=== PATIENT | male | born 1955 | race Caucasian/White ===

== ENCOUNTER 2018-01-01 00:57 | Day surgery (SDC) | payer OTHER ==
[2018-01-01] VITALS (8 sets, daily range): BP systolic 120–150; BP diastolic 60–89
[~2018-01-01] VITALS: Ht 180.3 cm; Wt 83.0 kg
[~2018-01-01 00:57] MED LIST: ABILIF5PT PO; ACET600C3 PO; ASPI-1471 PO; LAMO300T2 PO; LAMOT150PT PO; LEVO-3 PO; LEVO300T31 PO; MULT1TAB64 PO; OXCA150T47 PO; OXCA300T59 PO
[2018-01-01] MEDS ORDERED: FAMOTIDINE 20 MG TAB PO ONE (06:00)
[2018-01-01] MEDS ORDERED: ceFAZolin(*) 2GM/D5W 50ML 50 ML IVPB ONE (06:00)
[2018-01-01] MEDS ORDERED: MIDAZOLAM 2 MG/2 ML VIAL IVP PRN (06:00)
[2018-01-01] MEDS ORDERED: LIDOCAINE/SOD BICARB 8.4% SYR ID ONE (06:00)
[2018-01-01] MEDS ORDERED: BACITRACIN OINT 0.9 GM PKT TP ONE (07:20)
[2018-01-01] MEDS ORDERED: ROPIVACAINE 0.5% 20 ML VIAL ONE (07:20)
[2018-01-01] MEDS: NORMOSOL R SOLN(*) 1000 ML BAG 1,000 ML IV PRN ×2 (07:20→09:16)
[2018-01-01] MEDS ORDERED: fentaNYL CITR 100 MCG/2 ML AMP ONE ×2 (07:30→09:22)
[2018-01-01] MEDS ORDERED: LIDOCAINE MPF 1% 5 ML VIAL ONE (07:31)
[2018-01-01] MEDS ORDERED: PROPOFOL EMUL(*) 10MG/ML 20 ML 20 ML ONE (07:31)
[2018-01-01] MEDS ORDERED: KETAMINE HCL-NS 50 MG/5 ML SYR ONE (07:31)
[2018-01-01] MEDS ORDERED: ONDANSETRON 4 MG/2 ML VIAL ONE (07:31)
[2018-01-01] MEDS ORDERED: DEXAMETHASONE SOD PHOS 10MG/ML ONE (07:31)
[2018-01-01] MEDS ORDERED: ROCURONIUM BROM 10 MG/ML 10 ML ONE (08:35)
[2018-01-01] MEDS ORDERED: SUGAMMADEX SOD 500 MG/5 ML SDV ONE (09:02)
[2018-01-01] MEDS ORDERED: OXYC-854 PO (09:22)
[2018-01-01] MEDS ORDERED: DOCU-416 PO (09:22)
--- NOTE | 2018-01-01 09:25 | Short(Outpt) Discharge Summary ---
Discharge Summary Reason for Hosp/Final Diag: (1) Umbilical hernia Status: Chronic Hospital Course & Plan: UH repair WITH mesh completed without problems. Departure Discharge to: Home, Self Care Discharge Instructions Home Meds Active Scripts Docusate Sodium (COLACE) 100 Mg Capsule, 1 CAP PO BID, #30 CAP 0 Refills TAKE WITH A FULL GLASS OF WATER Prov:YULIET FARRIS MD 01/01/18 Oxycodone Hcl/Acet 5/325 Mg (ENDOCET 5-325 TABLET) 1 Each Tablet, 1 TAB PO Q4H PRN for PAIN, #20 TAB 0 Refills Prov:YULIET FARRIS MD 01/01/18 Reported Medications Lamotrigine (LAMOTRIGINE) 300 Mg Tab.er.24, 300 MG PO DAILY 12/09/17 Levothyroxine Sodium (LEVOTHYROXINE SODIUM) 300 Mcg Tablet, 350 MCG PO QDAY 12/09/17 Oxcarbazepine (OXCARBAZEPINE) 300 Mg Tablet, 300 MG PO DAILY 12/09/17 Multivitamin (MULTI VITAMIN DAILY) 1 Each Tablet, 1 EACH PO QDAY, TAB 12/09/17 Acetylcysteine (NAC) 600 Mg Capsule, 600 MG PO QDAY, CAPSULE 12/09/17 Aspirin (ASPIR 81) 81 Mg Tablet.dr 81 MG PO QDAY, TAB 12/09/17 Aripiprazole (ABILIFY) 5 Mg Tablet, 0.5 TAB PO QODAY, #10 TAB 01/13/15 Follow up Referrals: General Surgery - 01/16/18 @ Surgery, General with YULIET FARRIS MD You have a follow up appointment scheduled with Dr. Farris on 01/16/18, at 10:15am. Diet: Regular Activity: No Heavy Lifting Special Instructions: You may remove the white surgical dressing on 01/03/18, then you can shower. After showering, leave the incision open to air but leave the steristrips in place until they fall off on their own. Do not immerse the incision for 2 weeks. Avoid any activity that involves straining or lifting more then 10 pounds for 4 weeks after surgery. Problem Qualifiers (1) Umbilical hernia: Obstruction and gangrene presence: without obstruction or gangrene Qualified Codes: K42.9 - Umbilical hernia without obstruction or gangrene YULIET FARRIS MD Jan 01, 2018 09:25
--- NOTE | 2018-01-01 09:31 | Post Operative Progress Note ---
Post Operative Progress Note Date: Jan 01, 2018 Time: 09:25 Surgeon: Brigid Dictation number: [id number] Anesthesia: LMA by Dr. Eid Pre-Op Diagnosis: Umbilical Hernia Post-Op Diagnosis: ROD Findings: 1.5cm defect Procedure(s): UH repair with mesh Specimen Removed:(May be N/A): Hernia sac and contents Complications: None Fluids: See anesthesia record Estimated Blood Loss: Minimal Date OP Note Dictated: Jan 01, 2018 Time OP Note Dictated: 09:26 YULIET FARRIS MD Jan 01, 2018 09:31
--- NOTE | 2018-01-01 18:56 | OPERATIVE REPORT 1 ---
EVENT DATE: January 01, 2018 SURGEON: Beck Rainey MD ANESTHESIOLOGIST: Alpesh Eid MD ANESTHESIA: LMA. PREOPERATIVE DIAGNOSIS Umbilical hernia. POSTOPERATIVE DIAGNOSIS Umbilical hernia. PROCEDURE PERFORMED Umbilical hernia repair with mesh. COMPLICATIONS None. CONDITION Stable. BLOOD LOSS Minimal. FINDINGS Patient had about a 1.5 cm fascial defect. I placed a 4.5 cm piece of C-QUR umbilical mesh to patch the defect. INDICATIONS Patient is a 62-year-old gentleman who presented to my office with a bulge at his umbilicus that was getting bigger and causing him some discomfort. It was consistent with an umbilical hernia, and he was requesting to have it repaired. DESCRIPTION OF PROCEDURE The patient was brought to the operating room and placed supine on the operating table. LMA anesthesia was administered, and his abdomen was prepped and draped in a sterile fashion. Timeout was completed, and I injected the supraumbilical skin with 0.5% ropivacaine plain. I made a curvilinear frowning face-type supraumbilical incision and dissected through the dermis and in the subcutaneous fat. I identified the hernia sac immediately and dissected around this and raised the umbilicus up off of the hernia sac. I cleaned off the hernia sac all the way down to the fascial defect and then amputated the hernia sac. There were no intra-abdominal contents in the hernia sac. I maintained control of the peritoneum where I divided the hernia sac, and then when I passed the specimen off the field, I closed the peritoneal defect with a running 3-0 Vicryl suture. I then created a preperitoneal space, then measured the fascial defect at about 1.5 cm, then obtained a 4.3 cm round piece of C-QUR umbilical mesh, inserted it into the preperitoneal space, and cut off the tails. It laid nice and flat. I irrigated and dried the wound and then oversewed the fascia with interrupted 0 Ethibond sutures. I incorporated the mesh into this closure to make sure the mesh did not migrate out of the way of the fascial defect. I then tacked the umbilicus down to the fascia with a single 3-0 Vicryl suture. The skin was closed with 4-0 Monocryl running subcuticular sutures. I then irrigated and dried the skin, placed Steri-Strips over the incision, then packed the umbilicus with antibiotic-laden 2 x 2 gauze, and then covered this whole incision and umbilicus with Primapore surgical dressing. The patient was awakened and LMA removed. He was transported to the recovery room in stable condition having tolerated the procedure without any problems. KRUPA
== END 2018-01-01 10:00 | disposition home or self-care (01) ==
LOC: OR 00:57
PROVIDERS: ATTEND Surgery
DX: K42.9 Umbilical hernia without obstruction or gangrene (principal)
CPT/HCPCS: 49585; 88302; 94667; C1781; C9399; J1100; J2001; J2405; J2704; J2795; J3010; J3490; J0690

== ENCOUNTER → 2018-04-21 | Outpatient (CLI) | payer OTHER ==
[~2018-04-21] MED LIST changes: +DOCU-416 PO; +OXYC-854 PO
== END ==
LOC: LAB 10:34
PROVIDERS: ATTEND Family Medicine
DX: R79.0 Abnormal level of blood mineral (principal)
CPT/HCPCS: 36415; 85014

== ENCOUNTER 2018-05-21 01:29 | Day surgery (SDC) | payer OTHER ==
[~2018-05-21] VITALS: Ht 180.3 cm; Wt 79.4 kg
[2018-05-21] VITALS (10 sets, daily range): BP systolic 133–165; BP diastolic 68–87
[~2018-05-21 01:29] MED LIST changes: +LISI5TAB25 PO; +MV-M1TAB37 PO
[2018-05-21] MEDS ORDERED: FAMOTIDINE 20 MG TAB PO ONE (06:45)
[2018-05-21] MEDS ORDERED: PREGABALIN 150 MG CAPSULE PO ONE (06:45)
[2018-05-21] MEDS ORDERED: ACETAMINOPHEN 500 MG TAB PO ONE (06:45)
[2018-05-21] MEDS ORDERED: MIDAZOLAM 2 MG/2 ML VIAL IVP PRN (06:45)
[2018-05-21] MEDS ORDERED: LIDOCAINE/SOD BICARB 8.4% SYR ID ONE (06:45)
[2018-05-21] MEDS ORDERED: ceFAZolin(*) 2GM/D5W 50ML 50 ML IVPB ONE (06:45)
[2018-05-21] MEDS ORDERED: NORMOSOL R SOLN(*) 1000 ML BAG 1,000 ML IV PRN (06:45)
[2018-05-21] MEDS ORDERED: ROPIVACAINE 0.5% 20 ML VIAL ONE (08:08)
[2018-05-21] MEDS ORDERED: fentaNYL CITR 100 MCG/2 ML AMP ONE ×3 (08:08→12:08)
[2018-05-21] MEDS ORDERED: KETAMINE HCL-NS 50 MG/5 ML SYR ONE (08:08)
[2018-05-21] MEDS ORDERED: ONDANSETRON 4 MG/2 ML VIAL ONE (08:09)
[2018-05-21] MEDS ORDERED: LIDOCAINE MPF 1% 5 ML VIAL ONE (08:09)
[2018-05-21] MEDS ORDERED: ROCURONIUM BROM 10 MG/ML 10 ML ONE (08:09)
[2018-05-21] MEDS ORDERED: PROPOFOL EMUL(*) 10MG/ML 20 ML 20 ML ONE (08:09)
[2018-05-21] MEDS ORDERED: DEXAMETHASONE SOD PHOS 10MG/ML ONE (08:09)
[2018-05-21] MEDS ORDERED: LABETALOL HCL 25 MG/5 ML SYRINGE ONE (09:38)
[2018-05-21] MEDS ORDERED: OXYC-854 PO (11:21)
[2018-05-21] MEDS ORDERED: DOCU-416 PO (11:21)
--- NOTE | 2018-05-21 11:25 | Short(Outpt) Discharge Summary ---
Discharge Summary Reason for Hosp/Final Diag: (1) Bilateral inguinal hernia (BIH) Status: Chronic Hospital Course & Plan: Robotic BIH repair completed without problems. Departure Discharge to: Home, Self Care Discharge Instructions Home Meds Active Scripts Docusate Sodium (COLACE) 100 Mg Capsule, 1 CAP PO BID, #30 CAP 0 Refills TAKE WITH A FULL GLASS OF WATER Prov:YULIET FARRIS MD 05/21/18 Oxycodone Hcl/Acet 5/325 Mg (ENDOCET 5-325 TABLET) 1 Each Tablet, 1 TAB PO Q4H PRN for PAIN, #20 TAB 0 Refills Prov:YULIET FARRIS MD 05/21/18 Reported Medications Lisinopril (LISINOPRIL) 5 Mg Tablet, 5 MG PO QDAY, TAB 05/12/18 Mv-Mn/Fa/Lycopene/Lut/Hb#178 (DARI MULTI FOR MEN TABLET) 1 Each Tablet, 1 EACH PO DAILY 05/12/18 Lamotrigine (LAMOTRIGINE) 300 Mg Tab.er.24, 300 MG PO DAILY 12/09/17 Levothyroxine Sodium (LEVOTHYROXINE SODIUM) 300 Mcg Tablet, 350 MCG PO QDAY 12/09/17 Oxcarbazepine (OXCARBAZEPINE) 300 Mg Tablet, 300 MG PO DAILY 12/09/17 Acetylcysteine (NAC) 600 Mg Capsule, 2400 MG PO QDAY, CAPSULE 12/09/17 Aspirin (ASPIR 81) 81 Mg Tablet.dr, 81 MG PO QDAY, TAB 12/09/17 Aripiprazole (ABILIFY) 5 Mg Tablet, 0.5 TAB PO QODAY, #10 TAB 01/13/15 Follow up Referrals: General Surgery - 06/03/18 @ Surgery, General with YULIET FARRIS MD You have a follow up appointment scheduled with Dr. Farris on 06/03/18, 2:00pm. Diet: Regular Activity: No Heavy Lifting Special Instructions: You may remove the white surgical dressings on 05/23/18, then you can shower. After showering, leave the incisions open to air but leave the steristrips in place until they fall off on their own. Do not immerse the incisions for 2 weeks. Avoid any activities the involve straining or lifting more than 10 pounds for 2 weeks after surgery. Problem Qualifiers (1) Bilateral inguinal hernia (BIH): Obstruction and gangrene presence: without obstruction or gangrene Recurrence: non-recurrent Qualified Codes: K40.20 - Bilateral inguinal hernia, without obstruction or gangrene, not specified as recurrent YULIET FARRIS MD May 21, 2018 11:25
[2018-05-21] MEDS ORDERED: PROMETHAZINE 25 MG/ML 1 ML AMP ONE (11:32)
--- NOTE | 2018-05-21 11:35 | Post Operative Progress Note ---
Post Operative Progress Note Date: May 21, 2018 Time: 11:28 Surgeon: Brigid Dictation number: [id number] Anesthesia: GETA by Dr. Eid Pre-Op Diagnosis: BIH Post-Op Diagnosis: BIH, direct left and indirect right Findings: Direct inguinal hernia on left and indirect inguinal hernia on the right Procedure(s): Robotic BIH repair Specimen Removed:(May be N/A): None Complications: None Fluids: See anesthesia record Estimated Blood Loss: Minimal Date OP Note Dictated: May 21, 2018 Time OP Note Dictated: 11:29 YULIET FARRIS MD May 21, 2018 11:35
[2018-05-21] MEDS ORDERED: ACETAMINOPHEN(*)1000 MG/100 ML 100 ML IVPB ONE (11:50)
--- NOTE | 2018-05-21 12:32 | OPERATIVE REPORT 1 ---
EVENT DATE: May 21, 2018 SURGEON: Beck Rainey MD ANESTHESIOLOGIST: Alpesh Eid MD ANESTHESIA: General endotracheal. PREOPERATIVE DIAGNOSIS Bilateral inguinal hernias. POSTOPERATIVE DIAGNOSIS Bilateral inguinal hernias. PROCEDURE Robotic bilateral inguinal hernia repair. COMPLICATIONS None. CONDITION Stable. ESTIMATED BLOOD LOSS Minimal. INDICATIONS This is a 62-year-old gentleman who presented with bilateral groin bulges that were causing him discomfort and his exam was consistent with bilateral inguinal hernias and he was requesting to have them repaired. DESCRIPTION OF PROCEDURE The patient was brought to the operating room, placed supine on the operating table. General endotracheal anesthesia was administered and his abdomen was prepped and draped in sterile fashion. Time-out was completed and I injected the skin the left upper quadrant subcostal mid clavicular line with 0.5% ropivacaine plain. I made an 8 mm transverse incision in the skin and then used a Veress needle to access the peritoneal cavity and insufflated the abdomen to a pressure of 15 mmHg. I then, under direct visualization, using an optical 8 mm robotic optical trocar, with a camera in focus, inserted the camera into the insufflated abdomen and then placed another 8 mm robotic port in the right upper quadrant mid clavicular line and then one on the epigastric midline. I then inspected the groins and noted one hernia on each side so I pulled up the bilateral ProGrip mesh and inserted these in the peritoneal cavity and a couple of V-Loc absorbable sutures were inserted in the peritoneal cavity as well. The patient was placed in Trendelenburg and a robot was brought in, docked and targeted and the instruments inserted. I scrubbed out and went to the console and began repair. I divided the peritoneum from just medial to the right anterior superior iliac spine all the way across the midline to just medial to the left anterior superior iliac spine. I then mostly bluntly and sharply dissected the preperitoneal space and stripped the peritoneum down all the way down to the groins and cleaned off the pubic tubercles on both sides as well as Sanchez's ligament and the ileopubic tract on both sides as well. The peritoneum went up into the direct hernia space medial to the epigastric vessels on the left and I easily stripped this down and got the peritoneal reflection all the way down well away from the cord structures. I skeletonized the cord structures and there was no indirect component. On the left side, the sac went up into the inguinal canal but lateral to the inferior epigastric vessels but it did not go down in the scrotum and it ended blindly and I was easily able to strip and separate it from the cord structures and get the peritoneal reflection well away from the cord structures proximal to where they splay. After this was done, I brought in the mesh on both sides and unfurled it and laid it so it covered the pubic tubercle and Sanchez's ligament as well as the entire myopectineal arch on both sides and made sure it laid flat and it laid very nicely on both sides. I then closed the incision in the peritoneum with running V-Loc sutures all the way across and it closed nicely. There was a couple of tiny holes in the perineum, which I closed with [id number] 3-0 Vicryl sutures. After this was completed, instruments were removed, the robot undocked. All of the sutures and needles were removed from the peritoneal cavity and he instrument, suture, needle and sponge count was correct at the end of the case. I then desufflated the abdomen and removed the ports, closed the incisions with 4-0 Monocryl subcuticular suture. Skin was clean, dried and Steri-Strips were applied followed by sterile surgical dressings. The patient was then awakened and extubated in the operating room and transported to the recovery room in stable condition, having tolerated the procedure without any apparent problems. KRUPA
--- NOTE | 2018-05-21 12:40 | NUR ---
1240- PT BROUGHT TO STEP DOWN BAY 8, PT EYES SHUT;SLEEPING, VSS, SBAR REPORT FROM Kannan SANDHU RN, PT IS AROUSABLE TO VERBAL STIMULI, PT REPORTS HIS PAIN 4/10 ON SCALE, PT REPORTS FEELING SLEEPY 1244- LILIANE AT BEDSIDE 1251- PT REPORTS WANTING TO SLEEP, LIGHTS LOWERED; CALL LIGHT WITHIN REACH, WILL MONITOR PT FREQUENTLY, ICE PACK IN PLACE TO ABDOMEN
--- NOTE | 2018-05-21 13:00 | NUR ---
1300- VSS, PT SLEEPING
--- NOTE | 2018-05-21 13:34 | NUR ---
1334- PT RESTING WITH EYES SHUT, MAINTAINING SATS, RESPIRATIONS AND AIRWAY, WILL CONTINUE TO MONITOR, LILIANE AT BEDSIDE
--- NOTE | 2018-05-21 13:37 | NUR ---
7407- GIVEN SCRIPTS TO FILL, SHE PLANS TO RUN HOME AND FILL SCRIPTS AND WILL RETURN LATER
--- NOTE | 2018-05-21 14:02 | NUR ---
1402- PT AWAKE A/O X 3, PT STILL FEELS GROGGY WOULD LIKE TO REST, PT REQUESTING WATER
--- NOTE | 2018-05-21 14:07 | NUR ---
1407- PT REMAINS GROGGY, SORE WITH MOVEMENT, ICE PACK REFRESHED AND REAPPLIED TO ABDOMEN, WATER GIVEN AND WITHIN REACH, PT WOULD LIKE TO CONTINUE TO REST, WILL CONTINUE TO MONITOR
--- NOTE | 2018-05-21 14:30 | NUR ---
1430- VSS, DECREASED O2 TO 1LPM VIA NC
--- NOTE | 2018-05-21 14:43 | NUR ---
1443- PT TOLERATING CHOCOLATE PUDDING
--- NOTE | 2018-05-21 14:50 | NUR ---
1445- PT REPOSITIONED IN BED
[2018-05-21] MEDS ORDERED: oxyCODONE HCL 5 MG CAP PO ONE (14:55)
--- NOTE | 2018-05-21 14:58 | NUR ---
1458- OXYCODONE 5MG PO GIVEN
--- NOTE | 2018-05-21 14:59 | NUR ---
1459- PT PLACED ON RA
--- NOTE | 2018-05-21 15:05 | NUR ---
1505- PT REPOSITIONED IN BED WITH ASSISTANCE X 2 NURSES, PT LILIANE AT BEDSIDE
--- NOTE | 2018-05-21 15:25 | NUR ---
1525- REVIEWED D/C INSTRUCTIONS WITH PT AND
--- NOTE | 2018-05-21 15:39 | NUR ---
1530- ORTHOSTATIC VSS, SEE CHART FOR DETAILS 1540- PT AMBULATORY TO RESTROOM WITH HELP OF , STEADY BUT SLOW GAIT, PT DENIES NAUSEA OR DIZZINESS
--- NOTE | 2018-05-21 15:41 | NUR ---
1541- PT BACK FROM [facility], REPORTS VOID X 1 WITHOUT ISSUE
--- NOTE | 2018-05-21 15:45 | NUR ---
1545- D/C IV WITH CATH INTACT, PT TOLERATED WELL, PRESSURE DRESSING APPLIED GAUZE AND JASMINA 1550- PT WHEELCHAIRED TO PARKING LOT, PT INTO VEHICLE WITHOUT ISSUES, ACCOMPANIED BY DANGELO FATIMA AND ROSIE ALEXANDER
== END 2018-05-21 12:45 | disposition home or self-care (01) ==
LOC: OR 01:29
PROVIDERS: ATTEND Surgery
DX: K40.20 Bilateral inguinal hernia, without obstruction or gangrene, not specified as recurrent (principal)
CPT/HCPCS: 49650; J0131; J1100; J2001; J2405; J2550; J2704; J2795; J3010; J3490; S2900; C1781; J0690

== ENCOUNTER 2018-06-24 08:00 | Outpatient (RCR) | payer OTHER ==
[2018-04-22 09:05] VITALS: BP 146/88
[2018-04-22 09:06] VITALS: BP 115/77
[2018-06-24 08:14] VITALS: BP 144/84
[2018-06-24 08:57] VITALS: BP 124/81
== END 2018-07-21 ==
LOC: SPU 08:00
PROVIDERS: ATTEND Family Medicine
DX: R79.0 Abnormal level of blood mineral (principal)
CPT/HCPCS: 85014; 99195

== ENCOUNTER 2018-07-30 08:23 | Outpatient (RCR) | payer OTHER ==
[2018-07-30 08:30] VITALS: BP 125/74
[2018-07-30 09:14] VITALS: BP 150/89
== END 2018-10-07 14:50 | disposition home or self-care (01) ==
LOC: SPU 08:23
PROVIDERS: ATTEND Family Medicine
DX: R79.0 Abnormal level of blood mineral (principal)
CPT/HCPCS: 85014; 99195